=== PATIENT | female | born 1985 | race Hispanic/Latino ===

== ENCOUNTER 2017-08-20 09:03 | Day surgery (SDC) | payer OTHER ==
[~2017-08-20] VITALS: Ht 156.2 cm; Wt 85.5 kg
[~2017-08-20 09:03] MED LIST: ACET-2743 PO; BISA-72 PO; CHOL100044 PO; FISH1CAP27 PO; LOSA25TA21 PO; METF500T6 PO; SODIUM CHLORIDE 0.9% 1000ML 1,000 ML IV ONE; [UNRECOGNIZED DRUG - CODE] TP
[2017-08-20 09:15] VITALS: BP 134/82
[2017-08-20] MEDS ORDERED: PROPOFOL 10 MG/ML 20ML VIAL IV ONE (10:56)
== END 2017-08-20 12:00 | disposition home or self-care (01) ==
LOC: DAH 09:03 → ENDO 09:03
PROVIDERS: ATTEND Internal Medicine
DX: K83.8 Other specified diseases of biliary tract (principal); K31.89 Other diseases of stomach and duodenum; E11.9 Type 2 diabetes mellitus without complications; I10 Essential (primary) hypertension
CPT/HCPCS: 43239; 43259; 81025; 82948 ×2; 88305; 88312; 88313; A4606; J2704; J7030; 43231